=== PATIENT | female | born 1955 | race American Indian/Alaskan Native ===

== ENCOUNTER 2019-06-04 07:35 | Day surgery (SDC) | payer OTHER ==
[~2019-06-04] VITALS: Ht 160 cm; Wt 108.9 kg
[~2019-06-04 07:35] MED LIST: CEFAZOLIN SOD 1 GM in D5W 50 ML IV ONE
[2019-06-04] MEDS ORDERED: POLYMYXIN 500,000/BACIT.10,000 UNITS in NS IRR 1 L IR ONE (11:00)
[2019-06-04] MEDS ORDERED: IOHEXOL 0 ML IV ONE (11:04)
[2019-06-04] MEDS ORDERED: CEFAZOLIN 2 GM IVPB PREMIX 50 ML IV ONE (11:10)
[2019-06-04] MEDS ORDERED: ONDANSETRON HCL 4 MG/2 ML VIAL IVP ONE (11:10)
[2019-06-04] MEDS ORDERED: fentaNYL CITRATE 250 MCG/5 ML AMP IV ONE (11:10)
[2019-06-04] MEDS ORDERED: SEVOFLURANE 15 MIN GAS INH ONE (11:10)
[2019-06-04] MEDS ORDERED: PROPOFOL 200MG/ 20ML VIAL (DIPRIVAN) IV ONE (11:10)
[2019-06-04] MEDS ORDERED: ROCURONIUM BROMIDE 10 MG/ML (ZEMURON) IV ONE (11:10)
[2019-06-04] MEDS ORDERED: LR 1,000 ML IV.SOLN IV ONE (11:10)
[2019-06-04] MEDS ORDERED: HEPARIN SODIUM, PORCINE 10,000 UNITS/ 10 ML VIAL MC ONE (11:10)
[2019-06-04] MEDS ORDERED: MIDAZOLAM HCL 5 MG/5 ML VIAL IVP ONE (11:10)
[2019-06-04] MEDS ORDERED: KETOROLAC TROMETHAMINE 30 MG VIAL IVP ONE (11:10)
[2019-06-04] MEDS ORDERED: DEXAMETHASONE SOD PHOSPHATE 4 MG/ML VIAL IVP ONE (11:10)
[2019-06-04] MEDS ORDERED: NS 500 ML IV.SOLN IV ONE (11:10)
[2019-06-04] MEDS ORDERED: LR 1,000 ML IV SCH (12:12)
[2019-06-04] MEDS ORDERED: HYDROmorphone 2 MG/ML VIAL IVP PRN ×2 (12:15)
[2019-06-04] MEDS ORDERED: MEPERIDINE HCL/PF 25 MG/ML DISP.SYRIN IVP PRN (12:15)
[2019-06-04] MEDS ORDERED: HYDROmorphone 1 MG INJ. 1 MG/ML AMPUL IVP PRN ×2 (12:15→12:30)
[2019-06-04] MEDS ORDERED: D5/0.45 NS 1,000 ML IV SCH (12:19)
[2019-06-04] MEDS ORDERED: HYDROcodone/ACETAMIN 5-325 MG TAB (NORCO/ VICODIN) PO PRN ×2 (12:30)
[2019-06-04] MEDS ORDERED: HYDROmorphone 1 MG INJ. 1 MG/ML AMPUL ONE (12:59)
[2019-06-04 13:46] VITALS: BP_SYST 123
== END 2019-06-04 14:25 | disposition home or self-care (01) ==
LOC: SMU 07:35 → SDS 07:35
PROVIDERS: ATTEND Colon & Rectal Surgery
DX: C15.9 Malignant neoplasm of esophagus, unspecified (principal); E66.01 Morbid (severe) obesity due to excess calories; I10 Essential (primary) hypertension; K21.9 Gastro-esophageal reflux disease without esophagitis; E03.9 Hypothyroidism, unspecified; M79.7 Fibromyalgia; D64.9 Anemia, unspecified; G62.9 Polyneuropathy, unspecified; Z88.1 Allergy status to other antibiotic agents; Z79.899 Other long term (current) drug therapy; F33.1 Major depressive disorder, recurrent, moderate; Z68.41 Body mass index [BMI] 40.0-44.9, adult
CPT/HCPCS: 36561; 71045; 77001; C1788; J0690; J1100; J1170; J1644; J1885; J2250; J2405; J2704; J3010; J7040; J7120; 76000; J7060; Q9967